=== PATIENT | male | born 1990 | race African-American/Black ===

== ENCOUNTER 2021-06-14 15:12 | Emergency (ER) | payer MEDICAID ==
[~2021-06-14] VITALS: Ht 167.6 cm; Wt 77.1 kg
[2021-06-14 15:41] VITALS: BP 138/74
--- NOTE | 2021-06-14 16:49 | NUR ---
PT'S RIGHT POINTER FINGER PLACED IN ALUMINUM FINGER SPLINT. CMS WNL
[2021-06-14] MEDS ORDERED: IBUP-2213 PO (16:56)
--- NOTE | 2021-06-14 16:58 | NUR ---
C/O RIGHT INDEX FINGER PAIN S/P INJURY AT WORK X TODAY. NO DEFORMITY NOTED TO EXTREMITIES PMH: ASTHMA
[2021-06-14 17:07] VITALS: BP 138/74
== END 2021-06-14 17:07 | disposition home or self-care (01) ==
LOC: MED 15:12
DX: M79.644 Pain in right finger(s) (principal); W22.8XXA Striking against or struck by other objects, initial encounter; Y93.89 Activity, other specified; Y92.89 Other specified places as the place of occurrence of the external cause; Y99.8 Other external cause status
CPT/HCPCS: 73140; 99283

== ENCOUNTER 2021-09-19 15:56 | Emergency (ER) | payer MEDICAID ==
[~2021-09-19 15:56] MED LIST: IBUP-2213 PO
--- NOTE | 2021-09-19 17:00 | NUR ---
Called to triage no answer
--- NOTE | 2021-09-19 17:30 | NUR ---
CALLED TO TRIAGE A SECOND TIME NO ANSWER
--- NOTE | 2021-09-19 18:48 | NUR ---
PATIENT LEFT WITHOUT BEING SEEN BY DR. SHEPHERD. NO FURTHER CARE PROVIDED FOR PATIENT.
--- NOTE | 2021-09-19 18:48 | NUR ---
NO ANSWER ON THIRD CALL
== END 2021-09-19 18:48 | disposition left against medical advice (07) ==
LOC: MED 15:56
DX: Z53.21 Procedure and treatment not carried out due to patient leaving prior to being seen by health care provider (principal)